=== PATIENT | female | born 1970 ===

== ENCOUNTER 2017-05-24 15:16 | Emergency (ER) | payer OTHER ==
--- NOTE | 2017-05-24 16:12 | UC ---
Abdominal Pain Female HPI - HPI Summary HPI Summary: 46 yr old female c/o RUQ/Rt lower rib pain and rt shoulder pain x 4 days. Pain was on/off x 1st 2 days. No pain yesterday and wernt to work. Woke up at 6 AM today with significant pain Rt low ribs. Pain 10/10. radiates to rt shoulder. she thought the shoulder pain may be related to the PT exercises she is doing for cervical pinched nerve. Ate a burger and pasta salad last night and steak and pasta salad for lunch today. No fevers. No trauma. Not on HRT. No personal or FHx DVTs/PEs. no recent car trips or surgeries or prolonged sitting. Denies fever. Did not take anything to alleviate the pain. Max pain 10/10 when lying supine, decreases to 2/10 when sitting up and leaning forward. Has h/o elevated BP reports d/t stress that resolved 07/15. She was never on BP meds. Reports 2 brothers had aneurysms in late 40s. Both parents with cardiac hx. - History of Current Complaint Chief Complaint: UCGeneralIllness Stated Complaint: RIGHT RIB,SHOULDER PAIN,SOB Time Seen by Provider: 05/24/17 15:48 Allergies/Adverse Reactions: Allergies Allergy/AdvReac Type Severity Reaction Status Date / Time No Known Allergies Allergy Verified 05/24/17 15:25 Home Medications: Home Medications Vitamins And Magnesium 1 tab DAILY 05/24/17 [History] PMH/Surg Hx/FS Hx/Imm Hx Previously Healthy: Yes - Surgical History Surgical History: Yes Surgery Procedure, Year, and Place: - Family History Known Family History: Positive: Cardiac Disease - mom and dad, Other - 2 brothers with brain aneurysms. - Social History Alcohol Use: None Substance Use Type: None Smoking Status (MU): Never Smoked Tobacco Review of Systems Constitutional: Negative Skin: Negative Eyes: Negative ENT: Negative Respiratory: Shortness Of Breath - with deep breath Cardiovascular: Negative Gastrointestinal: Abdominal Pain Genitourinary: Negative Motor: Negative Neurovascular: Negative Musculoskeletal: Other: - rt shoulder pain, rt lower rib/ruq abd pain Neurological: Negative Psychological: Negative All Other Systems Reviewed And Are Negative: Yes Physical Exam Triage Information Reviewed: Yes Appearance: Well-Nourished, Pain Distress - appears moderately uncomfortable. Vital Signs: Initial Vital Signs Pulse 79 05/24/17 15:48 Resp 18 05/24/17 15:48 BP 173/104 05/24/17 15:48 Pulse Ox 100 05/24/17 15:48 Vital Signs Reviewed: Yes Eye Exam: Normal ENT: Positive: Pharynx normal, TMs normal Dental Exam: Normal Neck exam: Normal Neck: Positive: Supple, Nontender, No Lymphadenopathy Respiratory Exam: Normal Respiratory: Positive: Lungs clear, Normal breath sounds, No respiratory distress, No accessory muscle use, Other: - discomfort in RUQ with taking a moderate breath. Negative: Crackles, Rhonchi, Stridor, Wheezing Cardiovascular Exam: Normal Cardiovascular: Positive: RRR, No Murmur, Pulses Normal, Brisk Capillary Refill Abdomen Description: Positive: No Organomegaly, Soft, Other: - + RUQ tenderness. Negative: CVA Tenderness (R), CVA Tenderness (L), Distended, Guarding Bowel Sounds: Positive: Present Musculoskeletal Exam: Normal Neurological Exam: Normal Psychological Exam: Normal Skin Exam: Normal Abd Pain Female Course/Dx - Course Course Of Treatment: EKG - NSR, nml axis, no AV/IV changes. no ST/T changes. no S1, Q 3, inv T 3. no tachyrcardia. no tachypnea. Advised to follow BP closely and maintain also d/t Fhx brain anueurysms. She should consider brain MRA b.c FHx. No TALAVERA. DDX includes cholecystitis and PE. Needs further eval at this time for both and she agrees to go to ER. Declines ambulance adn wishes to go by private car as she is comfortable while sitting up. Reviewed these risks. she prefers [facility] proximity. CXR cx'd as she will have further imaging in ER. - Differential Dx/Diagnosis Differential Diagnosis: Constipation, Gall Bladder Disease, Pneumonia, Renal Colic, Other - PE Provider Diagnoses: RUQ pain, Rt shoulder pain. Rt rib pain - Physician Notification/Consults Discussed Care of Patient With: Jyoti Nam. RESIDENT CARE AIDE at [facility]. Reviewed recommendation for CT r/o PE, GB Time Discussed With Above Provider: 16:05 Discharge - Discharge Plan Condition: Fair Disposition: AGAINST MEDICAL ADVICE
== END 2017-05-24 16:00 | disposition left against medical advice (07) ==
LOC: UCCORT 15:16
DX: R10.11 Right upper quadrant pain (principal); M25.511 Pain in right shoulder; R07.81 Pleurodynia; X58.XXXA Exposure to other specified factors, initial encounter; Y92.9 Unspecified place or not applicable
CPT/HCPCS: 93005; 99203; G0463

== ENCOUNTER 2018-10-22 09:10 | Emergency (ER) | payer OTHER ==
[2018-10-22 10:00] VITALS: BP 154/110
--- NOTE | 2018-10-22 10:12 | UC ---
Respiratory Complaint HPI - HPI Summary HPI Summary: 48 yo female with nasal congestion and post nasal drip x days no f/c no n/v/d no cp or SOB yesterday developed left wrist pain three days ago was on vacation and kayaking - History of Current Complaint Chief Complaint: UCGeneralIllness Stated Complaint: CONGESTION, LT WRIST COMPLAINT Time Seen by Provider: 10/22/18 10:04 Hx Obtained From: Patient Hx Last Menstrual Period: 10/07/18 Onset/Duration: Gradual Onset Timing: Constant Severity Initially: Mild Severity Currently: Moderate Pain Intensity: 8 - pain Pain Scale Used: 0-10 Numeric Character: Cough: Nonproductive Aggravating Factors: Nothing Alleviating Factors: Nothing Associated Signs And Symptoms: Positive: Nasal Congestion, Sinus Discomfort - Allergies/Home Medications Allergies/Adverse Reactions: Allergies Allergy/AdvReac Type Severity Reaction Status Date / Time No Known Allergies Allergy Verified 05/24/17 15:25 Home Medications: Home Medications Aspirin 81 mg CHEW TAB* [Aspirin Low Dose TAB*] 81 mg PO DAILY 10/22/18 [ History Confirmed 10/22/18] Cholecalciferol (Vitamin D3) [Vitamin D3] 1,000 unit PO 10/22/18 [History] Holmes-3 Fatty Acids/Fish Oil [Fish Oil 1,000 mg Capsule] 1 each PO 10/22/18 [ History Confirmed 10/22/18] PMH/Surg Hx/FS Hx/Imm Hx Previously Healthy: Yes - Surgical History Surgical History: Yes Surgery Procedure, Year, and Place: - Family History Known Family History: Positive: Cardiac Disease - mom and dad, Hypertension, Other - 2 brothers with brain aneurysms. - Social History Alcohol Use: None Substance Use Type: None Smoking Status (MU): Never Smoked Tobacco Review of Systems All Other Systems Reviewed And Are Negative: Yes Constitutional: Positive: Negative Skin: Positive: Negative Eyes: Positive: Negative ENT: Positive: Nasal Discharge, Sinus Congestion, Sinus Pain/Tenderness Respiratory: Positive: Cough Cardiovascular: Positive: Negative Gastrointestinal: Positive: Negative Genitourinary: Positive: Negative Motor: Positive: Negative Neurovascular: Positive: Negative Musculoskeletal: Positive: Negative Neurological: Positive: Negative Psychological: Positive: Negative Physical Exam Triage Information Reviewed: Yes Appearance: Well-Appearing, No Pain Distress, Well-Nourished Vital Signs: Initial Vital Signs Temp 98.4 F 10/22/18 09:56 Pulse 83 10/22/18 09:56 Resp 15 10/22/18 09:56 BP 154/110 10/22/18 09:56 Pulse Ox 99 10/22/18 09:56 Vital Signs Reviewed: Yes Eyes: Positive: Conjunctiva Clear ENT: Positive: Nasal congestion, Nasal drainage, Sinus tenderness Neck: Positive: Supple, Nontender, No Lymphadenopathy Respiratory: Positive: Lungs clear, Normal breath sounds, No respiratory distress Cardiovascular: Positive: RRR, No Murmur Musculoskeletal: Positive: ROM Limited @ - left wrist, Edema @ - dorsum of lwft wrist Neurological: Positive: Alert, Muscle Tone Normal Psychological Exam: Normal Skin Exam: Normal UC Diagnostic Evaluation - Laboratory O2 Sat by Pulse Oximetry: 99 - normal/not hypoxic - Radiology Radiology Interpretation Completed By: Radiologist Summary of Radiographic Findings: Suggestion of a small loose body at the volar margin of the radiocarpal joint. Negative for fracture or malalignment. Mild nonfocal soft tissue swelling. Respiratory Course/Dx - Differential Dx/Diagnosis Provider Diagnoses: viral URI. possible loose body left wrist Discharge - Sign-Out/Discharge Documenting (check all that apply): Patient Departure All imaging exams completed and their final reports reviewed: Yes - Discharge Plan Condition: Stable Disposition: HOME Patient Education Materials: Upper Respiratory Infection (ED), Swollen Joint ( ED) Referrals: Elsa Bello MD [Primary Care Provider] - 2 Weeks (BP recheck) Gabriel Holguin MD [Medical Doctor] - 4 Days Additional Instructions: splint advil You may have a loose body in your left wrist I suggest ortho follow up - Billing Disposition and Condition Condition: STABLE Disposition: Home
== END 2018-10-22 11:02 | disposition home or self-care (01) ==
LOC: UCCORT 09:10
DX: J06.9 Acute upper respiratory infection, unspecified (principal); M25.532 Pain in left wrist; Z79.82 Long term (current) use of aspirin
CPT/HCPCS: 99212; G0463